=== PATIENT | female | born 1960 | race Caucasian/White ===

== ENCOUNTER 2019-06-27 16:13 | Emergency (ER) | payer OTHER ==
[~2019-06-27] VITALS: Ht 170.2 cm; Wt 86.2 kg
[2019-06-27 16:51] LABS: ABSOLUTE BASOPHILS 0.1 thou/uL (0.0-0.2); ABSOLUTE EOSINOPHILS 0.2 thou/uL (0.0-0.7); ABSOLUTE LYMPHOCYTES 3.1 thou/uL (0.8-5.3); ABSOLUTE MONOCYTES 0.8 thou/uL (0.0-1.2); ABSOLUTE NEUTROPHILS 8.5 thou/uL (1.6-8.1); BASOPHILS 1.2 %; EOSINOPHILS 1.3 %; HEMATOCRIT 44.7 % (37.0-47.0); HEMOGLOBIN 15.7 gm/dL (12.0-15.0); LYMPHOCYTES 24.5 %; MCH 30.6 pg (26.0-34.0); MCHC 35.1 g/dL (28.0-37.0); MCV 87.2 fL (80.0-100.0); MONOCYTES 6.2 %; MPV 9.8 fl. (7.2-11.1); NUCLEATED RBCS 0 /100WBC; PLATELET COUNT* 263 thou/uL (150-400); POLYS 66.8 %; RBC 5.13 mil/uL (4.20-5.00); RDW-CV 13.7 % (10.5-14.5); WBC 12.7 thou/uL (4.0-11.0)
[2019-06-27 16:57] LABS: CALCIUM 9.2 mg/dL (8.5-10.1); CREATININE 1.1 mg/dL (0.6-1.3); POTASSIUM 4.9 mmol/L (3.5-5.1)
[2019-06-27 17:02] LABS: ALBUMIN 3.6 g/dL (3.4-5.0); TOTAL BILIRUBIN 0.6 mg/dL (<0.1-1.0); TOTAL PROTEIN 7.6 g/dL (6.4-8.2)
[2019-06-27] MEDS ORDERED: GLYBURIDE 5 MG T5 M1 (17:02)
[2019-06-27] MEDS ORDERED: METFORMIN HCL500 M3 PO (17:03)
[2019-06-27] MEDS ORDERED: SYNTHROID125 MC1 PO (17:04)
[2019-06-27] MEDS ORDERED: LISINOPRIL2.5 MG (17:04)
[2019-06-27 17:17] LABS: URINE BILIRUBIN NEGATIVE (Negative); URINE BLOOD 3+ (Negative); URINE CLARITY CLEAR; URINE COLOR YELLOW; URINE GLUCOSE-RANDOM 3+ (Negative); URINE KETONES 1+ (Negative); URINE LEUKOCYTES-REFLEX NEGATIVE (Negative); URINE NITRITE-REFLEX NEGATIVE (Negative); URINE PROTEIN 3+ (Negative); URINE SPECIFIC GRAVITY >= 1.030 (1.005-1.030); URINE UROBILINOGEN 0.2 E.U./dl (0.2-1.0)
[2019-06-27 17:19] LABS: CASTS None Seen /LPF (None Seen); SQUAMOUS 4-10 Moderate /LPF (0-3); URINE RBC >20 Many /HPF (0-2); URINE WBC-REFLEX 0-5 Rare /HPF (0-5)
[2019-06-27 17:20] LABS: CRYSTALS None Seen /LPF (None Seen)
[2019-06-27] MEDS ORDERED: ONDANSETRON HCL4 M2 PO (18:20)
[2019-06-27] MEDS ORDERED: NORCO 5-325 TA1 EAC1 PO (18:20)
[2019-06-27] MEDS ORDERED: CIPRO500 MG PO (18:24)
[2019-06-27 18:59] VITALS: BP 140/83
== END 2019-06-27 19:01 | disposition home or self-care (01) ==
LOC: M.ERS 16:13
PROVIDERS: Physician Assistant
DX: N12 Tubulo-interstitial nephritis, not specified as acute or chronic (principal); R73.9 Hyperglycemia, unspecified